=== PATIENT | female | born 1960 | race African-American/Black ===

== ENCOUNTER 2020-11-25 13:21 | Emergency (ER) | payer MEDICARE, OTHER ==
[~2020-11-25] VITALS: Ht 167.6 cm; Wt 82.0 kg
[2020-11-25] MEDS ORDERED: LORAZEPAM 2MG/ML CPJ IV ONE (13:30)
[2020-11-25 14:53] LABS: EOSINOPHILS % 1.3 % (0.0-5.0); HEMATOCRIT. 38.5 % (36.0-48.0); HEMOGLOBIN. 12.8 g/dL (12.0-16.0); LYMPHOCYTES % 30.5 % (20.0-50.0); MEAN CORPUSCULAR HEMOGLOBIN 31.3 pg (28.0-32.0); MONOCYTES % 5.8 % (2.0-8.0); NEUTROPHILS % 61.4 % (40.0-76.0); RED CELL DISTRIBUTION WIDTH 13.5 % (11.6-14.6)
[2020-11-25 15:00] LABS: CHLORIDE 108 mEq/L (98-107)
[2020-11-25 15:45] VITALS: BP 135/82
[2020-11-25 15:50] LABS: MEAN PLATELET VOLUME 10.4 fl (7.4-10.4); PLATELET 176 x1000/uL (130-400)
== END 2020-11-25 15:56 | disposition home or self-care (01) ==
LOC: ER 13:21
DX: T88.1XXA Other complications following immunization, not elsewhere classified, initial encounter (principal); F41.9 Anxiety disorder, unspecified; E11.9 Type 2 diabetes mellitus without complications; Z88.8 Allergy status to other drugs, medicaments and biological substances; Z88.5 Allergy status to narcotic agent; Z91.041 Radiographic dye allergy status
CPT/HCPCS: 36415; 71045; 80053; 83880; 84484; 85025; 93005; 96374; 99285; J2060